=== PATIENT | male | born 1975 | race African-American/Black ===

== ENCOUNTER 2016-09-13 14:29 | Inpatient (IN) | payer MEDICARE, OTHER ==
--- NOTE | ~2016-09-13 | CR72 ---
[facility] A Service of [facility] & [facility] RADIOLOGY TEXT RESULTS PATIENT: EDWIN YIP LOCATION: [facility] 324-01 : 73 UNIT #: [id number] AGE: [address]: Laverne Waldrop MD SEX: M ORDER DR: [id number] [place], [place] [address] [id number] I MR#: [id number] Acc #: [id number] NAME: EDWIN YIP : 1975 SEX: M STUDY DATE/TIME: 09/13/2016 12:16 UNIT: [address] ROOM: [address] [place] [address] DESCRIPTION: CR Chest Single View Portable Attending Physician: Laverne Waldrop M.D. Ordering Physician: Ed Doctor [id number] [facility] MEDICAL IMAGING REPORT This report is preliminary unless electronic signature is present EXAM Portable chest INDICATION Chest pain, shortness of breath and congestive heart failure since yesterday. FINDINGS Cardiomegaly and vascular congestion are noted. Patient has a left-sided pacemaker. No pneumothorax is seen. No definite pleural effusion is identified. Dictated by... Tierra Chandra M.D. THIS IS AN ELECTRONICALLY VERIFIED REPORT Tierra Chandra M.D. at 09/16/2016 1:00 PM CAIO/esteban TD: 09/14/2016 07:37 JOB #: [id number] MEDICAL IMAGING REPORT Page 1 of 1 COPY
--- NOTE | ~2016-09-13 | EKG ---
PATIENT: EDWIN YIP UNIT #: [id number] Ventricular Rate: 93 BPM Atrial Rate: 74 BPM QRS Duration: 176 ms Q-T Interval: 474 ms QTC Calculation(Bezet): 589 ms Calculated R [place]: 150 degrees Calculated T [place]: -33 degrees Diagnosis Line: Atrial fibrillation with premature ventricular or Diagnosis Line: aberrantly conducted complexes Diagnosis Line: Right bundle branch block , plus right ventricular Diagnosis Line: hypertrophy Diagnosis Line: Left posterior fascicular block Diagnosis Line: Bifascicular block Diagnosis Line: Inferior infarct (cited on or before 13-SEP-2016) Diagnosis Line: T wave abnormality, consider lateral ischemia or Diagnosis Line: digitalis effect Diagnosis Line: Abnormal ECG Diagnosis Line: When compared with ECG of 13-SEP-2016 11:44, Diagnosis Line: Electronic demand pacing is no longer Present Diagnosis Line: QT has lengthened Diagnosis Line: Confirmed by FORD CHEUNG MD ([id number]) on Diagnosis Line: 09/14/2016 3:55:57 PM INTERPRETING MD: ALEJANDRA
--- NOTE | ~2016-09-13 | CR63 ---
[facility] A Service of [facility] RADIOLOGY TEXT RESULTS PATIENT: EDWIN YIP LOCATION: [facility] : 71 UNIT #: [id number] AGE: [address]: Laverne Waldrop MD SEX: M ORDER DR: [id number] [facility] [address] [facility]. [place], [place] [address] [id number] I MR#: [id number] Acc #: [id number] NAME: EDWIN YIP : 1975 SEX: M STUDY DATE/TIME: 09/15/2016 9:39 UNIT: [facility] ROOM: [facility] STUDY DESCRIPTION: CR Chest 2 View Attending Physician: Laverne Waldrop M.D. Ordering Physician: Laverne Waldrop M.D. MEDICAL IMAGING REPORT This report is preliminary unless electronic signature is present EXAM PA and lateral chest, 09/15/2016 HISTORY Chest pain, shortness of breath for 3 days since 09/12/2016. Hypertension. COMPARISON AP portable chest, 09/13/2016 at 12:16. FINDINGS Lateral image is severely limited secondary to under-penetration related to the patient's body habitus. Severe cardiac enlargement persists with central vascular congestive change. No definite pleural effusion or lung consolidations. No pneumothorax identified. Left chest wall pacemaker and leads are stable. Median sternotomy and cardiac valve replacement changes are noted. IMPRESSION 1. Persistent severe cardiac enlargement with central vascular congestive change. 2. No pleural effusion or lung consolidations. Dictated by... Sharron Sandoval M.D. THIS IS AN ELECTRONICALLY VERIFIED REPORT Sharron Sandoval M.D. at 09/16/2016 7:11 AM YAZMIN/marlon TD: 09/15/2016 12:21 JOB #: [id number] MEDICAL IMAGING REPORT [facility] A Service of [facility] RADIOLOGY TEXT RESULTS PATIENT: EDWIN YIP LOCATION: [facility] 324 : 71 UNIT #: [id number] AGE: [address]: Laverne Waldrop MD SEX: M ORDER DR: Page 1 of 1 COPY
--- NOTE | ~2016-09-13 | EKG ---
PATIENT: EDWIN YIP UNIT #: [id number] Ventricular Rate: 81 BPM Atrial Rate: 87 BPM QRS Duration: 172 ms Q-T Interval: 466 ms QTC Calculation(Bezet): 541 ms Calculated R [place]: 177 degrees Calculated T [place]: -10 degrees Diagnosis Line: Demand pacemaker; interpretation is based on Diagnosis Line: intrinsic rhythm Diagnosis Line: Atrial fibrillation Diagnosis Line: Right bundle branch block , plus right ventricular Diagnosis Line: hypertrophy Diagnosis Line: Left posterior fascicular block Diagnosis Line: Bifascicular block Diagnosis Line: Cannot rule out , age undetermined Diagnosis Line: Abnormal ECG Diagnosis Line: No previous ECGs available Diagnosis Line: Confirmed by TUSHAR SAXENA MD ([id number]) on 09/14/2016 Diagnosis Line: 7:17:58 AM INTERPRETING MD: HEMANTH HAYS
--- NOTE | ~2016-09-13 | BMI ---
[facility] Nutrition Therapy DATE: 09/15/16 Patient: EDWIN YIP Physician: ATTPRE [facility] [address] Room/Bed: [address] [place] [address], Zip: [place] [address] Admit Date: 09/13/16 Date of : [birth year] Height: 5 9 Weight: 331 150.4 HIGH BMI NOTE: ANTHROPOMETRICS: HT: 69" WT: 150.4 KG BMI: 49 INTERVENTION: 1. HEART HEALTHY DIET RECOMMENDATIONS: 1. CONTINUE CURRENT DIET IN ORDER TO PROMOTE GRADUAL WEIGHT LOSS TOWARDS A HEALTHY BMI RANGE. Respectfully, SAVANNA DICKENS RD, LD Food and Nutritional Services [facility] cc: client file
--- NOTE | ~2016-09-13 | HP ---
Unit #: [id number] #: [id number] Patient: EDWIN YIP [id number] [facility]. [place], [place] [address] [id number] I MR#: [id number] NAME: EDWIN YIP ROOM: 324 Age: 41 Sex: M Admission Date: 09/13/2016 : 1975 Attending Physician: Laverne Waldrop M.D. HISTORY AND PHYSICAL HISTORY OF PRESENT ILLNESS This is a 41-year-old -[place] male, previously known to Dr. Zhu and the Advanced Heart Failure team at [facility]. The patient is known to have nonischemic cardiomyopathy with valvular heart disease. He underwent a mechanical aortic valve replacement at [facility] in 2010. He has a Medtronic biventricular AICD which was implanted October 13, 2012. He has been treated for chronic systolic congestive heart failure, morbid obesity and chronic kidney disease stage 3. He was recommended for bariatric surgery during his last visit to the Advanced Heart Failure team but the patient states that he has not followed up with the surgeon yet. Additional past medical history includes gout and probable obstructive sleep apnea. The patient has a history of cigar use in the past but not over the last couple of years. He reportedly had a cardiac catheterization with no significant blockage prior to his valve surgery. He also had an exercise stress test [facility] protocol November 27, 2015, which was limited due to a right bundle branch block. There was moderate to severe impaired functional capacity but no obvious pulmonary disease. The patient presented to the hospital with complaints of shortness of breath that started yesterday. Last night he could not lay down to sleep. He does sleep with several pillows to start with but his shortness of breath was so severe that he could not lay down at all. He denies any dizziness, palpitations or syncope. His AICD has not fired. He has had some mid sternal chest pressure with episodes of shortness of breath. There was no radiation to the neck, jaws, shoulders or arms. There were no associated symptoms of nausea, vomiting or diaphoresis. His weight has been up and down. He states that he is compliant with his medications but does not follow the fluid restriction. He has had a nonproductive cough which is no worse than normal. He did have one episode of nausea but no vomiting. He presented to the hospital for further evaluation. In the emergency department, his temperature was 97.9, pulse 103, respirations 16, blood pressure 116/99, O2 saturation 98% on room air. Initial labs revealed a creatinine of 2.3 with a BUN of 41. The patient is known to have stage 3 chronic kidney disease. BNP was elevated at 1096. Initial cardiac enzymes were negative. INR was therapeutic at 2.8 on Coumadin. Chest x-ray revealed vascular congestion with cardiomegaly and AICD. He was given 40 mg of IV Lasix with full dose aspirin and sublingual nitroglycerin. He was admitted for further observation. PAST MEDICAL HISTORY 1. Nonischemic cardiomyopathy and valvular heart disease. Status post mechanical aortic valve replacement at [facility] Unit #: [id number] #: [id number] Patient: [facility] in 2010. 2. 2D echocardiogram 08/15/2015 revealed LVEDD of 7.9 cm. Ejection fraction 26%. 3. Exercise stress test 11/27/2015 [facility] protocol revealed a technically difficult study secondary to chronic right bundle branch block. Moderate to severe impaired functional capacity. No obvious pulmonary disease. 4. Chronic systolic congestive heart failure. 5. No significant coronary artery disease per previous cardiac catheterization by patient report. Details pending. 6. Status post Medtronic biventricular AICD on 10/13/2012. 7. Obesity. 8. Probable obstructive sleep apnea. 9. Chronic kidney disease, stage 3. 10. Gout. 11. History of cigar use. PAST SURGICAL HISTORY 1. Cardiac catheterization. 2. Mechanical aortic valve replacement. MEDICATIONS Home medications include: 1. Coumadin 7 mg p.o. daily. 2. Metoprolol tartrate 100 mg p.o. daily. 3. Lisinopril 40 mg p.o. daily. 4. Allopurinol 300 mg p.o. daily. 5. Lasix 80 mg p.o. daily. ALLERGIES No known drug allergies. SOCIAL HISTORY The patient lives in a private residence. He is a reformed smoker. He admits to smoking cigars but has not smoked in the last couple of years. There are no reports of alcohol or illicit drug use. FAMILY HISTORY Noncontributory. REVIEW OF SYSTEMS Ten point review of systems negative except for details noted above in HPI. PHYSICAL EXAMINATION VITAL SIGNS: Temperature 97.9, pulse 103, blood pressure 116/99. CONSTITUTIONAL: This is a 41-year-old white male in no acute distress. SKIN: Warm and dry. NECK: Supple. No jugular vein distention. No hepatojugular reflux. Normal carotid upstrokes. No carotid bruits auscultated. HEART: S1 and S2. Regular rate and rhythm. No murmurs, rubs or gallops. Positive click. LUNGS: Bilateral breath sounds have good air entry throughout all lung mccarthy. They are diminished in the bases. Respirations even and unlabored. No rales, rhonchi or wheezes. ABDOMEN: Obese and slightly tight. Positive bowel sounds auscultated x4 quadrants. No clear ascites noted. EXTREMITIES: Bilateral extremities have +1 pitting edema. DP and PT Unit #: [id number] #: [id number] Patient: PHI,WILL pulses 2+. Capillary refill less than three seconds. DIAGNOSTIC STUDIES LABORATORY: White blood cell count 5.4, hemoglobin 13.3, hematocrit 43.9, platelets 213, sodium 138, potassium 4.8, chloride 104, CO2 23, BUN 41, creatinine 2.3. Direct bilirubin 0.5, indirect bilirubin 1.0, AST 23, ALT 17, alkaline phos. 60. BNP 1096, INR 2.8. IMAGING: Chest x-ray reveals cardiomegaly with vascular congestion and AICD. CARDIOVASCULAR: Electrocardiogram reveals paced rhythm with what appears to be underlying atrial fibrillation. Ventricular rate 81 beats per minute. Right bundle branch block with left posterior fascicular block. QTC 541 msec. IMPRESSION 1. Acute on chronic systolic congestive heart failure. 2. Reported nonischemic cardiomyopathy with ejection fraction 26% in July 2015. 3. Valvular heart disease, status post mechanical aortic valve replacement at [facility] in 2010. 4. History of Medtronic right ventricular automatic implantable cardioverter defibrillator implanted 10/13/2012. 5. Previous cardiac catheterization with no significant stenosis reported per patient. Details coming. 6. Obesity. 7. Probable obstructive sleep apnea. 8. Chronic kidney disease stage 3. 9. History of gout. 10. History of reformed tobacco abuse. 11. Old right bundle branch block. 12. Atrial fibrillation with controlled ventricular rate, unknown duration. 13. Chronic anticoagulation with Coumadin due to mechanical valve. PLAN 1. The patient presented to the hospital with complaints of shortness of breath and chest tightness. He was admitted for further observation. 2. He will be started on a dobutamine drip as well as IV Lasix. His beta maria e will be held while dobutamine infuses. 3. He will be continued on an KRANTHI inhibitor with parameters. 4. TSH, fasting lipid profile, and chemistry will be obtained. 5. Patient will have daily PT/INRs with adjustment of Coumadin as needed. 6. Records will be reviewed from [facility]. The patient had a cardiac catheterization and reportedly had no significant disease but this will need to be reviewed. 7. He has been advised to lose weight. He was previously referred for bariatric surgery but did not follow up. 8. He has been encouraged to be compliant with fluid restriction. 9. Upon discharge, he can follow up with Dr. Zhu and the Advanced Heart Failure team. Dictated by Lizette Gautam APRN for Unit #: [id number] #: [id number] Patient: EDWIN YIP Constantin Jean-Baptiste TD: 09/14/2016 14:27 JOB #: [id number] HISTORY AND PHYSICAL Page 1 of 1 X X HISTORY AND PHYSICAL
--- NOTE | ~2016-09-13 | DS ---
Unit #: [id number] #: [id number] Patient: EDWIN YIP [id number] [address] [id number] I MR#: [id number] NAME: EDWIN YIP ROOM: 324 Age: 41 Sex: M Admission Date: 09/13/2016 : 1975 Discharge Date: 09/16/2016 Attending Physician: Laverne Waldrop M.D. DISCHARGE SUMMARY DISCHARGE DIAGNOSES 1. Acute on chronic systolic heart failure with reduced ejection fraction of 20%. 2. Nonischemic cardiomyopathy status post biventricular automatic implantable cardioverter-defibrillator in 09/2012. 3. Nonsustained ventricular tachycardia. 4. Chronic right bundle branch block. 5. History of mechanical aortic valve replacement. 6. Chronic kidney disease. 7. Morbid obesity. 8. Obstructive sleep apnea. 9. Two-dimensional echocardiogram, 08/15/2015, at [facility] revealed an ejection fraction of 26%. There was [id number] global hypokinesis of the left ventricle. Severe posterior wall hypokinesis. Apical akinesis. Flattened septum consistent with right ventricular pressure overload. Severe left ventricular enlargement. Well-seated mechanical aortic valve. (1) max 199.4 centimeters per second, mean pressure gradient 8.7, aortic valve area 2 centimeters squared. DISCHARGE MEDICATIONS 1. Warfarin 7 mg p.o. daily. 2. Metoprolol tartrate 25 mg b.i.d. 3. Furosemide 80 mg b.i.d. 4. Lisinopril 10 mg b.i.d. 5. Allopurinol 300 mg daily. 6. Aspirin 81 mg daily. HOSPITAL COURSE This is a 41-year-old male who has a history of mechanical aortic valve replacement in 2010. He is known to have chronic systolic heart failure, and his last ejection fraction was 26% per echocardiogram at [facility]. He had biventricular AICD placed for cardiomyopathy. He was admitted with acute on chronic systolic heart failure. He was diuresed with IV furosemide and started on a dobutamine drip. As the patient symptomatically improved, dobutamine was weaned to off. IV furosemide was changed to oral. Metoprolol was held while on dobutamine infusion. He developed a run of nonsustained ventricular tachycardia. Once dobutamine was discontinued, he was restarted on Metoprolol. His arrhythmias ceased. Electrolytes were within normal limits. He is known to have chronic kidney disease, and his creatinine remained at his baseline at 2.3. On the day of discharge, his creatinine is 1.7. Lisinopril home dose was decreased from 40 mg a day to Unit #: [id number] #: [id number] Patient: EDWIN YIP 10 mg b.i.d. INR was therapeutic throughout his stay. Coumadin was continued. Today, the patient is symptomatically improved. He is able to lie down without dyspnea. His heart rate and blood pressure are stable. No further arrhythmias were noted. His creatinine is stable. INR is therapeutic. Cardiac rehab saw the patient prior to discharge, and he is scheduled for an appointment on 10/13/2016. CHF education was given. He is stable for discharge today. ASSESSMENT VITAL SIGNS: Blood pressure 94/58, heart rate 85. CHEST: With diminished breath sounds in both lungs. ABDOMEN: Soft, nontender, with bowel sounds present. EXTREMITIES: Without leg edema. DIAGNOSTIC STUDIES LABORATORY STUDIES: Glucose 115, BUN 28, creatinine 1.7, sodium 135, potassium 4.6. Cholesterol 120, triglycerides 69, LDL 88, HDL 18. TSH 0.89. ProTime 25.4, INR 2.3. DISCHARGE INSTRUCTIONS 1. The patient will be discharged home today. 2. Follow up with the transplant clinic and heart failure clinic at [place]. 3. Lisinopril has been decreased to 10 mg p.o. b.i.d. 4. Metoprolol has been decreased to 25 mg p.o. b.i.d. 5. CHF education has been given. 6. Cardiac rehab on 10/13/2016 at [facility]. 7. Encourage weight loss. 8. Maintain 1,800 mL fluid restriction at home. Dictated by... Marlen Hackett M.D. AEP/kavin TD: 09/17/2016 08:05 JOB #: [id number] DISCHARGE SUMMARY Page 1 of 1 X Jerrell Slater APRN X DISCHARGE SUMMARY
[2016-09-13 11:55] LABS: POC - CKMB 1.8 ng/mL (0.0-7.9); POC - TROPONIN <0.05 ng/mL (<=0.05)
[2016-09-13 12:01] LABS: INR 2.8; PARTIAL THROMBOPLASTIN TIME 30.7 SECONDS (23.5-31.3); PROTHROMBIN TIME (PATIENT) 30.7 SECONDS (9.6-11.5)
[2016-09-13 12:04] LABS: BASOPHIL# 0.1 X10e3 (0-0.3); BASOPHIL% 1.9 % (0-2.5); EOSINOPHIL# 0.1 X10e3 (0-0.7); EOSINOPHIL% 1.3 % (0.0-7.0); HEMATOCRIT 43.9 % (38.0-50.0); HEMOGLOBIN 13.3 gm/dL (13.0-16.0); LYMPHOCYTE# 1.3 X10e3 (1.0-3.5); LYMPHOCYTE% 23.8 % (17.0-45.0); MEAN CELL VOLUME 83.9 FL (83-96); MEAN CORPUSCULAR HEMOGLOBIN 25.5 PG (28-34); MEAN CORPUSCULAR HGB CONC 30.4 g/dL (30-36); MEAN PLATELET VOLUME 9.1 FL (6.5-11.5); MONOCYTE# 0.6 X10e3 (0-1.0); MONOCYTE% 10.5 % (3.0-12.0); NEUTROPHIL# 3.4 X10e3 (1.5-7.1); NEUTROPHIL% 62.5 % (40-75); PLATELET COUNT 213 X10e3 (140-420); RED BLOOD COUNT 5.23 X10e (3.90-5.60); RED CELL DISTRIBUTION WIDTH 19.9 % (11.0-15.5); WHITE BLOOD COUNT 5.4 X10e3 (4.0-10.5)
[2016-09-13 12:14] LABS: ALBUMIN SERUM 3.9 g/dL (3.5-5.0); BILIRUBIN, DIRECT 0.5 mg/dL (0.0-0.2); BILIRUBIN,TOTAL 1.5 mg/dL (0.2-2.0); BUN/CREATININE RATIO 17.82; CALCIUM SERUM 9.1 mg/dL (8.4-10.2); CREATININE SERUM 2.3 mg/dL (0.6-1.4); GLOM FILT RATE Estimated 33.5 mL/min (>60); POTASSIUM 4.8 mmol/L (3.5-5.1); PROTEIN TOTAL SERUM 7.8 g/dL (6.0-8.3)
[2016-09-13 12:36] LABS: DIFF IND NO
[2016-09-13 13:31] LABS: POC - CKMB 1.1 ng/mL (0.0-7.9); POC - TROPONIN <0.05 ng/mL (<=0.05)
[~2016-09-13 14:29] MED LIST: ALLOPURINOL300 MG PO; COUMADIN7.5 MG PO; LASIX80 MG PO; LOPRESSOR PO; PRINIVIL40 MG PO
[2016-09-13 21:17] LABS: %MB 2.4 % (0.0-4.0); MB 3.8 ng/ml
[2016-09-13 23:56] LABS: MAGNESIUM 1.8 mg/dL (1.6-3.0); POTASSIUM 3.9 mmol/L (3.5-5.1)
[2016-09-14 02:00] LABS: INR 2.5
[2016-09-14 02:10] LABS: BUN/CREATININE RATIO 19.52; CALCIUM SERUM 8.7 mg/dL (8.4-10.2); CREATININE SERUM 2.1 mg/dL (0.6-1.4); GLOM FILT RATE Estimated 43.4 mL/min (>60); MAGNESIUM 1.8 mg/dL (1.6-3.0); POTASSIUM 3.9 mmol/L (3.5-5.1)
[2016-09-14 02:12] LABS: BASOPHIL# 0.1 X10e3 (0-0.3); BASOPHIL% 1.4 % (0-2.5); DIFF IND NO; EOSINOPHIL# 0.1 X10e3 (0-0.7); EOSINOPHIL% 2.1 % (0.0-7.0); HEMATOCRIT 40.3 % (38.0-50.0); HEMOGLOBIN 12.4 gm/dL (13.0-16.0); LYMPHOCYTE# 1.4 X10e3 (1.0-3.5); LYMPHOCYTE% 24.8 % (17.0-45.0); MEAN CELL VOLUME 82.8 FL (83-96); MEAN CORPUSCULAR HEMOGLOBIN 25.5 PG (28-34); MEAN CORPUSCULAR HGB CONC 30.8 g/dL (30-36); MEAN PLATELET VOLUME 8.5 FL (6.5-11.5); MONOCYTE# 0.7 X10e3 (0-1.0); MONOCYTE% 12.2 % (3.0-12.0); NEUTROPHIL# 3.4 X10e3 (1.5-7.1); NEUTROPHIL% 59.5 % (40-75); PLATELET COUNT 182 X10e3 (140-420); RED BLOOD COUNT 4.86 X10e (3.90-5.60); RED CELL DISTRIBUTION WIDTH 20.1 % (11.0-15.5); WHITE BLOOD COUNT 5.8 X10e3 (4.0-10.5)
[2016-09-14 02:23] LABS: %MB 2.2 % (0.0-4.0); MB 3.6 ng/ml
[2016-09-14 08:38] LABS: %MB 2.5 % (0.0-4.0)
[2016-09-15 07:58] LABS: INR 2.5; PROTHROMBIN TIME (PATIENT) 26.7 SECONDS (9.6-11.5)
[2016-09-15 08:17] LABS: BUN/CREATININE RATIO 15.26; CALCIUM SERUM 8.6 mg/dL (8.4-10.2); CREATININE SERUM 1.9 mg/dL (0.6-1.4); MAGNESIUM 1.9 mg/dL (1.6-3.0); POTASSIUM 3.9 mmol/L (3.5-5.1)
[2016-09-16 05:34] LABS: INR 2.3; PROTHROMBIN TIME (PATIENT) 25.4 SECONDS (9.6-11.5)
[2016-09-16 06:29] LABS: BUN/CREATININE RATIO 16.47; CALCIUM SERUM 8.8 mg/dL (8.4-10.2); CREATININE SERUM 1.7 mg/dL (0.6-1.4); MAGNESIUM 2.1 mg/dL (1.6-3.0); POTASSIUM 4.6 mmol/L (3.5-5.1)
[2016-09-16] MEDS ORDERED: ASPIRIN81 M2 PO (08:35)
== END 2016-09-16 13:28 | disposition home or self-care (01) | DRG 292 ==
LOC: CED 14:29 → CEDOF 14:30 → C3A PCU 21:02
PROVIDERS: Emergency Medicine; Internal Medicine Cardiovascular Disease
DX: I50.23 Acute on chronic systolic (congestive) heart failure (principal); I42.9 Cardiomyopathy, unspecified; I47.2 Ventricular tachycardia; N18.3 Chronic kidney disease, stage 3 (moderate); Z68.42 Body mass index [BMI] 45.0-49.9, adult; I45.10 Unspecified right bundle-branch block; Z95.810 Presence of automatic (implantable) cardiac defibrillator; G47.33 Obstructive sleep apnea (adult) (pediatric); M10.9 Gout, unspecified; Z95.2 Presence of prosthetic heart valve; Z79.01 Long term (current) use of anticoagulants; I48.91 Unspecified atrial fibrillation; I25.10 Atherosclerotic heart disease of native coronary artery without angina pectoris; E66.01 Morbid (severe) obesity due to excess calories
CPT/HCPCS: 36415; 71010; 71020; 80048; 80061; 80076; 82550; 82553; 83735; 83880; 84132; 84443; 84484; 85025; 85610; 85730; 93005; 96374; 99291; J1250; J1650; J1940; J3475